=== PATIENT | male | born 1945 | race Caucasian/White ===

== ENCOUNTER → 2024-09-11 12:49 | Outpatient (REF) | payer MEDICARE, OTHER, SELFPAY | LOC: HWEVLT 12:49 | PROVIDERS: ATTENDING PHYSICIAN Radiology Vascular & Interventional Radiology | DX: I83.893 Varicose veins of bilateral lower extremities with other complications (principal) | CPT/HCPCS: 93970 ==

== ENCOUNTER → 2025-01-03 10:50 | Outpatient (REF) | payer MEDICARE, OTHER, SELFPAY | LOC: HWEVLT 10:50 | PROVIDERS: ATTENDING PHYSICIAN Radiology Diagnostic Radiology | DX: I83.892 Varicose veins of left lower extremity with other complications (principal) | CPT/HCPCS: 36478; C1769 ==

== ENCOUNTER → 2025-01-16 10:39 | Outpatient (REF) | payer MEDICARE, OTHER, SELFPAY | LOC: HWEVLT 10:39 | PROVIDERS: ATTENDING PHYSICIAN Radiology Vascular & Interventional Radiology | DX: I83.892 Varicose veins of left lower extremity with other complications (principal) | CPT/HCPCS: 93971 ==